=== PATIENT | male | born 1965 | race African-American/Black ===

== ENCOUNTER 2025-08-22 02:44 | Inpatient (IN) | payer BC ==
[~2025-08-22] VITALS: Ht 188 cm; Wt 83.0 kg
[2025-08-22 02:53] VITALS: O2SAT 97
[2025-08-22] MEDS ORDERED: MORPHINE SULFATE 4 MG/ML INJ (FOR IV/IM USE) IV ONE (04:00)
[2025-08-22] MEDS: KETOROLAC 15MG/ML VIAL IV ONE (04:17)
[2025-08-22 04:24] LABS: BASOPHILS % 0.8 % (0.0-2.0); EOSINOPHILS % 4.7 % (0.0-5.0); HEMATOCRIT. 39.8 % (42.0-52.0); HEMOGLOBIN. 12.7 g/dL (14.0-18.0); LYMPHOCYTES % 25.5 % (20.0-50.0); MEAN PLATELET VOLUME 8.1 fl (7.4-10.4); MONOCYTES % 11.6 % (2.0-8.0); NEUTROPHILS % 57.4 % (40.0-76.0); PLATELET 146 x1000/uL (130-400); RED BLOOD CELL COUNT 5.50 mill/uL (4.7-6.1); RED CELL DISTRIBUTION WIDTH 15.0 % (11.6-14.6)
[2025-08-22 04:37] LABS: CREATININE 1.1 mg/dL (0.6-1.3); UREA NITROGEN BLOOD 10 mg/dL (9-23)
[2025-08-22 04:38] LABS: CLARITY URINE CLEAR (CLEAR); COLOR URINE YELLOW (YELLOW); GLUCOSE URINE 2+ (NEGATIVE); KETONES URINE NEGATIVE (NEGATIVE); LEUKOCYTE ESTERASE URINE NEGATIVE (NEGATIVE); NITRITE URINE NEGATIVE (NEGATIVE); OCCULT BLOOD URINE NEGATIVE (NEGATIVE); PH URINE 5.0 (4.5-8.0); PROTEIN URINE NEGATIVE (NEGATIVE); SPECIFIC GRAVITY URINE 1.018 (1.005-1.030); UROBILINOGEN URINE 0.2 E.U./dL (0.2-1.0)
[2025-08-22 05:25] LABS: SQUAMOUS EPITHELIAL CELL URINE FEW /lpf (RARE/1+)
[2025-08-22 05:27] LABS: BACTERIA URINE NONE SEEN; RBC URINE 0-2 /hpf (0-2); WBC URINE 0-2 /hpf (0-2)
[2025-08-22] MEDS: MORPHINE SULFATE 4 MG/ML INJ (FOR IV/IM USE) IV NR (05:41)
[2025-08-22 08:00] VITALS: BP 159/96; PULSE 67; RESP 18; TEMP 36.2; O2SAT 100
[2025-08-22 08:19] VITALS: BP 159/96; PULSE 67; RESP 18; TEMP 36.1956
[2025-08-22] MEDS ORDERED: CLONIDINE 0.1MG TABLET PO PRN (09:15)
[2025-08-22] MEDS ORDERED: DOCUSATE SODIUM 100MG CAPSULE PO PRN (09:15)
[2025-08-22] MEDS ORDERED: ACETAMINOPHEN 325MG TABLET PO PRN (09:15)
[2025-08-22] MEDS ORDERED: ONDANSETRON HCL 4MG/2ML INJ IV PRN (09:15)
[2025-08-22] MEDS ORDERED: MAGNESIUM/ALUMINUM HYDROXIDE/SIMETHICONE 30ML UDC PO PRN (09:15)
[2025-08-22] MEDS ORDERED: NA PHOS,M-B/NA PHOS,DI-BA ENEMA 118ML PR PRN (09:15)
[2025-08-22] MEDS ORDERED: IPRATROPIUM/ALBUTEROL 0.5-3(2.5)MG/3ML NEB NEB PRN (09:15)
[2025-08-22] MEDS ORDERED: GUAIFENESIN 200MG/10ML SUGAR FREE UDC PO PRN (09:15)
[2025-08-22] MEDS ORDERED: NALOXONE HCL 0.4MG/ML VIAL IV PRN (09:45)
[2025-08-22] MEDS: HYDROCODONE/ACETAMINOPHEN 5/325MG TABLET PO PRN (10:56)
[2025-08-22 12:00] VITALS: BP 134/78; PULSE 61; RESP 18; TEMP 36.5; O2SAT 98
[2025-08-22 16:00] VITALS: BP 133/73; PULSE 70; RESP 18; TEMP 36.5; O2SAT 98
[2025-08-22] MEDS ORDERED: DEXTROSE 50% WATER 50ML SYRINGE IV PRN (19:15)
[2025-08-22 20:00] VITALS: BP 139/84; PULSE 75; RESP 18; TEMP 36.4; O2SAT 95
[2025-08-22] MEDS: INSULIN LISPRO 100 UNITS/ML SUBCUT SCH (21:00)
[2025-08-22] MEDS: BLOOD SUGAR DIAGNOSTIC STRIP TEST SCH (21:06)
[2025-08-22] MEDS: GABAPENTIN 100MG CAPSULE PO SCH (21:07)
[2025-08-23] VITALS: BP 121/74; PULSE 67; RESP 18; TEMP 36.4; O2SAT 97
[2025-08-23] MEDS: MORPHINE SULFATE 2 MG/ML INJ (NOT FOR IM USE) IV NR (06:59)
[2025-08-23 08:00] VITALS: BP 147/83; PULSE 76; RESP 16; TEMP 36.2; O2SAT 99
[2025-08-23 08:41] LABS: BASOPHILS % 1.1 % (0.0-2.0); EOSINOPHILS % 5.6 % (0.0-5.0); HEMATOCRIT. 40.0 % (42.0-52.0); HEMOGLOBIN. 12.8 g/dL (14.0-18.0); LYMPHOCYTES % 33.6 % (20.0-50.0); MEAN PLATELET VOLUME 8.5 fl (7.4-10.4); MONOCYTES % 12.0 % (2.0-8.0); NEUTROPHILS % 47.7 % (40.0-76.0); PLATELET 148 x1000/uL (130-400); RED BLOOD CELL COUNT 5.59 mill/uL (4.7-6.1); RED CELL DISTRIBUTION WIDTH 14.9 % (11.6-14.6)
[2025-08-23] MEDS: ATORVASTATIN CALCIUM 20MG TABLET PO SCH (08:52)
[2025-08-23 08:59] LABS: CREATININE 1.1 mg/dL (0.6-1.3); UREA NITROGEN BLOOD 9 mg/dL (9-23)
[2025-08-23 12:00] VITALS: BP 128/71; PULSE 70; RESP 18; TEMP 36.4; O2SAT 97
[2025-08-23 16:02] VITALS: BP 125/79; PULSE 68; RESP 14; TEMP 36.3; O2SAT 100
[2025-08-23 20:00] VITALS: BP 120/78; PULSE 71; TEMP 36.5; O2SAT 95
[2025-08-24] VITALS: BP 110/78; PULSE 72; TEMP 36.6; O2SAT 100
[2025-08-24 04:06] VITALS: BP 114/64; PULSE 78; RESP 17; TEMP 36.5; O2SAT 95
[2025-08-24 08:00] VITALS: BP 116/68; PULSE 75; RESP 18; TEMP 36.7; O2SAT 98
[2025-08-24 12:00] VITALS: BP 114/70; PULSE 72; RESP 18; TEMP 36.7; O2SAT 98
[2025-08-24] MEDS ORDERED: ATOR20TA PO (13:49)
[2025-08-24] MEDS ORDERED: METF-414 MT (13:51)
[2025-08-24 14:24] VITALS: BP 126/82; PULSE 78; RESP 18; TEMP 98
[2025-08-24 16:00] VITALS: BP 114/66; PULSE 70; RESP 18; TEMP 36.6; O2SAT 98
== END 2025-08-24 17:53 | disposition home or self-care (01) | DRG 552 ==
LOC: ER 02:44 → 6EST 05:42 → EDBEDREQ 05:46 → EDBEDREQTM 05:46 → ENRESERV 06:37
PROVIDERS: ADMIT Internal Medicine; ATTEND Internal Medicine
DX: M47.817 Spondylosis without myelopathy or radiculopathy, lumbosacral region (principal); G90.89 Other disorders of autonomic nervous system; E11.65 Type 2 diabetes mellitus with hyperglycemia; M48.04 Spinal stenosis, thoracic region; M48.061 Spinal stenosis, lumbar region without neurogenic claudication; Z79.899 Other long term (current) drug therapy; Z79.4 Long term (current) use of insulin; Z91.81 History of falling
CPT/HCPCS: 36415; 72131; 72148; 80048; 81003; 82962; 83036; 85025; 96374; 96375; 99285; J1815; J1885; J2270